=== PATIENT | female | born 1995 | race Caucasian/White ===

== ENCOUNTER 2017-08-30 08:19 | Emergency (ER) | payer BC ==
[2017-08-30 08:27] VITALS: BP 105/61
--- NOTE | 2017-08-30 08:43 | UC ---
Complaint Female HPI - HPI Summary HPI Summary: Frequency and dysuria for about 4 days. No vaginal symptoms. not . no fever or vomiting. it hurts more to urinate. there has also been a cough for about 2 weeks. mainly dry. - History Of Current Complaint Chief Complaint: UCGU Stated Complaint: COUGH/URINARY COMPLAINT Time Seen by Provider: 08/30/17 08:33 Hx Obtained From: Patient Hx Last Menstrual Period: 08/08/17 ?: No Onset/Duration: Gradual Onset, Lasting Days Timing: Constant, Lasting Days Severity Initially: Mild Severity Currently: Moderate Character: Dull Aggravating Factor(s): Urination Alleviating Factor(s): Nothing Associated Signs And Symptoms: Positive: Back Pain. Negative: Vaginal Bleeding/ Discharge, Vaginal Discharge, Nausea, Vomiting(# Of Episodes =) - Allergies/Home Medications Allergies/Adverse Reactions: Allergies Allergy/AdvReac Type Severity Reaction Status Date / Time Sulfamethoxazole Allergy Hives Verified 08/30/17 08:27 w/Trimethoprim [From Bactrim] Home Medications: Home Medications Oral Contraceptive 1 tab PO DAILY 08/30/17 [History] PMH/Surg Hx/FS Hx/Imm Hx Previously Healthy: Yes - no lung disease. - Surgical History Surgical History: Yes Surgery Procedure, Year, and Place: Appendectomy 2000. wisdom teeth extraction - Family History Known Family History: Positive: Hypertension, Diabetes, Other - thyroid disease Negative: Renal Disease - Social History Alcohol Use: Weekly Alcohol Amount: Once Substance Use Type: None Smoking Status (MU): Never Smoked Tobacco Have You Smoked in the Last Year: No Review of Systems Respiratory: Cough Genitourinary: Dysuria, Frequency, Urgency All Other Systems Reviewed And Are Negative: Yes Physical Exam Triage Information Reviewed: Yes Appearance: Well-Appearing, No Pain Distress, Well-Nourished Vital Signs: Initial Vital Signs Temp 97.8 F 08/30/17 08:23 Pulse 68 08/30/17 08:23 Resp 14 08/30/17 08:23 BP 105/61 08/30/17 08:23 Pulse Ox 100 08/30/17 08:23 Vital Signs Reviewed: Yes Eyes: Positive: Conjunctiva Clear ENT: Positive: Pharynx normal, Nasal congestion, TMs normal. Negative: Pharyngeal erythema, Nasal drainage, Tonsillar swelling, Tonsillar exudate, Trismus Neck exam: Normal Neck: Positive: Supple, Nontender, No Lymphadenopathy Respiratory: Positive: Lungs clear, No respiratory distress, No accessory muscle use. Negative: Respiratory distress, Decreased breath sounds, Accessory muscle use, Crackles, Rhonchi, Stridor, Wheezing Cardiovascular Exam: Normal Cardiovascular: Positive: RRR, No Murmur, Pulses Normal, Brisk Capillary Refill Abdominal Exam: Normal Abdomen Description: Positive: Nontender, No Organomegaly, Soft. Negative: CVA Tenderness (R), CVA Tenderness (L) Musculoskeletal Exam: Normal Musculoskeletal: Positive: Strength Intact, ROM Intact, No Edema Neurological Exam: Normal Neurological: Positive: Alert, Muscle Tone Normal. Negative: Fatigued Psychological Exam: Normal Skin: Negative: rashes Complaint Female Dx - Differential Dx/Diagnosis Provider Diagnoses: uti. uri Discharge - Discharge Plan Condition: Good Disposition: HOME Prescriptions: Benzonatate CAP* [Tessalon 100 MG CAP*] 100 mg PO TID PRN #21 cap PRN Reason: Cough Nitrofurantoin Monohyd Macro [Macrobid] 100 mg PO BID #20 cap Patient Education Materials: Urinary Tract Infection in Women (ED), Upper Respiratory Infection (ED) Forms: *School Release Referrals: No Primary Care Phys,NOPCP [Primary Care Provider] - Additional Instructions: return here as we discussed for any worsening symptoms.
--- NOTE | 2017-09-01 07:29 | UC ---
Progress - Progress Note Progress Note: neg u/a culture stop antibiotics recheck prn
== END 2017-08-30 08:45 | disposition home or self-care (01) ==
LOC: UCCORT 08:19
DX: N39.0 Urinary tract infection, site not specified (principal); Z88.2 Allergy status to sulfonamides; Z88.1 Allergy status to other antibiotic agents
CPT/HCPCS: 81003; 87086; 99212; G0463

== ENCOUNTER 2018-02-08 14:54 | Emergency (ER) | payer BC ==
[2018-02-08 15:57] VITALS: BP 111/56
--- NOTE | 2018-02-08 16:39 | UC ---
FLU HPI - HPI Summary HPI Summary: 22 female presents to urgent care with complains of exposure to influenza by her roommate. Was told by her manager finance to get a prescription for Tamiflu preventatively. No symptoms at this time. Other complaints. No past medical history. - History of Current Complaint Chief Complaint: UCRespiratory Stated Complaint: strep exposure Time Seen by Provider: 02/08/18 15:55 Hx Obtained From: Patient Hx Last Menstrual Period: 01/08/18 Severity Currently: None Pain Intensity: 0 Pain Scale Used: 0-10 Numeric Associated Signs & Symptoms: Positive: Negative - Allergy/Home Medications Allergies/Adverse Reactions: Allergies Allergy/AdvReac Type Severity Reaction Status Date / Time sulfamethoxazole Allergy Hives Verified 02/08/18 15:50 [From Bactrim] trimethoprim [From Bactrim] Allergy Hives Verified 02/08/18 15:50 Home Medications: Home Medications Multivitamin [Multivitamins] 1 cap PO DAILY 02/08/18 [History Confirmed 02/08/18 ] PMH/Surg Hx/FS Hx/Imm Hx - Additional Past Medical History Additional PMH: denies PMHx no DM or HTN - Surgical History Surgical History: Yes Surgery Procedure, Year, and Place: Appendectomy 2000. wisdom teeth extraction - Family History Known Family History: Positive: Hypertension, Diabetes, Other - thyroid disease Negative: Renal Disease - Social History Alcohol Use: Occasionally Alcohol Amount: Once Substance Use Type: None Smoking Status (MU): Never Smoked Tobacco Have You Smoked in the Last Year: No Review of Systems Constitutional: Negative ENT: Negative Respiratory: Negative Cardiovascular: Negative All Other Systems Reviewed And Are Negative: Yes Physical Exam Triage Information Reviewed: Yes Appearance: Well-Appearing, No Pain Distress, Well-Nourished Vital Signs: Initial Vital Signs Temp 99.1 F 02/08/18 15:52 Pulse 65 02/08/18 15:52 Resp 18 02/08/18 15:52 BP 111/56 02/08/18 15:52 Pulse Ox 100 02/08/18 15:52 Vital Signs Reviewed: Yes Eyes: Positive: Conjunctiva Clear ENT: Positive: Normal ENT inspection, Pharynx normal Neck: Positive: Supple, Nontender, No Lymphadenopathy Respiratory: Positive: Chest non-tender, Lungs clear, Normal breath sounds, No respiratory distress, No accessory muscle use Cardiovascular: Positive: RRR, No Murmur, Pulses Normal Abdomen Description: Positive: Nontender, No Organomegaly, Soft Bowel Sounds: Positive: Present Musculoskeletal: Positive: Strength Intact Neurological: Positive: Alert Psychological: Positive: Normal Response To Family Skin Exam: Normal Flu Course/Dx - Course Course Of Treatment: will give tamiflu due to exposure to positive influenza from roomate within 48 hours. - Differential Dx/Diagnosis Differential Diagnosis/HQI/PQRI: Other - exposure to influenza Provider Diagnoses: influenza exposure Discharge - Sign-Out/Discharge Documenting (check all that apply): Discharge - Discharge Plan Condition: Good Disposition: HOME Prescriptions: Oseltamivir CAP* [Tamiflu CAP*] 75 mg PO DAILY #10 cap Patient Education Materials: Oseltamivir (By mouth) Referrals: No Primary Care Phys,NOPCP [Primary Care Provider] - Additional Instructions: Take prescribed medication as directed for the next 7-10 days. Any new or worsening symptoms seek medical attention. Maintain good hygiene precautions as influenza is very contagious. - Billing Disposition and Condition Condition: GOOD Disposition: HOME
== END 2018-02-08 16:51 | disposition home or self-care (01) ==
LOC: UCCORT 14:54
DX: Z20.828 Contact with and (suspected) exposure to other viral communicable diseases (principal); Z88.2 Allergy status to sulfonamides
CPT/HCPCS: 99212; G0463